=== PATIENT | female | born 1970 | race Caucasian/White ===

== ENCOUNTER → 2020-08-04 | Day surgery (SDC) | payer OTHER ==
[2020-08-01 16:16] LABS: BASOPHILS # (AUTO) 0.1 (0.0-0.1); BASOPHILS % 0.9 % (0.0-1.0); EOSINOPHILS # (AUTO) 0.8 (0.0-0.4); EOSINOPHILS % 8.2 % (0.0-6.0); HEMATOCRIT 36.6 % (34.2-44.1); HEMOGLOBIN 11.1 g/dL (12.0-16.0); LYMPHOCYTES # (AUTO) 4.2 (1.0-3.2); LYMPHOCYTES % 45.5 % (18.0-39.1); MEAN CORPUSCULAR HEMOGLOBIN 26.5 pg (28-32); MEAN CORPUSCULAR HGB CONC 30.3 g/dL (31-35); MEAN CORPUSCULAR VOLUME 87.4 fL (81-99); MONOCYTES # (AUTO) 0.7 (0.2-0.8); MONOCYTES % 7.1 % (4.4-11.3); NEUTROPHILS # (AUTO) 3.6 (2.1-6.9); NEUTROPHILS % 38.1 % (38.7-80.0); PLATELET COUNT 291 x10e3/uL (140-360); RED BLOOD COUNT 4.19 x10e6/uL (3.6-5.1); RED CELL DISTRIBUTION WIDTH 16.5 % (11.7-14.4)
[2020-08-01 16:31] LABS: ANION GAP 12.6 mmol/L (8-16); BLOOD UREA NITROGEN 13 mg/dL (7-26); BUN/CREATININE RATIO 16 (6-25); CARBON DIOXIDE 25 mmol/L (22-29); CHLORIDE 103 mmol/L (98-107); EST GLOMERULAR FILTRATION RATE > 60 ML/MIN (60-); GLUCOSE 173 mg/dL (74-118); POTASSIUM 4.6 mmol/L (3.5-5.1); SODIUM 136 mmol/L (136-145)
[~2020-08-04] MED LIST: ASPIRIN EC81 MG PO; CRESTOR10 MG PO; DEXAMETHASONE SOD PHOS INJ 4 MG/ML VIAL ONE; FENTANYL CITRATE/PF 100MCG/2 ML INJ ONE; GLYCOPYRROLATE INJ 0.2 MG/ML VIAL ONE; LIDOCAINE HCL 2% LOCAL INJ 5 ML SDV VIAL INJ ONE; METFORMIN HCL500 MG PO; METOPROLOL SUCC50 MG PO; MIDAZOLAM HCL 2 MG/2 ML VIAL ONE; MULTI-VITAMIN1 EACH PO; ONDANSETRON HCL INJ 2MG/ML 2ML 2 MG/ML VIAL ONE; PROPOFOL IV EMULSION 10 MG/ML 20 ML VIAL ONE; SEVOFLURANE INHAL SOLN 250 ML PEN BTL ONE; ZYRTEC10 M3 PO
[2020-08-04 14:15] VITALS: BP 162/86
--- NOTE | 2020-08-17 19:05 | Operative Report ---
DATE OF PROCEDURE: 08/04/2020 SURGEON: Cynthia Bazzi MD [employer] RIGGER: None. PREOPERATIVE DIAGNOSIS: Endometrial polyp. POSTOPERATIVE DIAGNOSIS: Uterine fibroid. PROCEDURES PERFORMED: Diagnostic hysteroscopy, dilatation and curettage and intrauterine myomectomy. FINDINGS DURING THE PROCEDURE: Cervix was closed along the posterior, uterus was anteverted approximately 6-week size. Upon hysteroscopic examination a mucosal fibroid was visualized in the uterine cavity approximately 2 cm. SPECIMENS: Removed were uterine fibroid and uterine curetting. ESTIMATED BLOOD LOSS: Less than 5 mL. DESCRIPTION OF PROCEDURE: The patient was taken to the operating room, general anesthesia was administered without difficulty. The patient was prepped and draped in dorsal lithotomy position. A time-out was performed. Attention was turned to the vagina cervix was grasped using a single tooth tenaculum. The cervix was hysteroscope, which was inserted to the uterine cavity. The uterus was distended using normal saline fluid. The above-mentioned findings were noted. A large whitish scar tissue device was then inserted into the uterus and myomectomy was performed without difficulty. Hysteroscope was removed and gentle sharp curettage was performed. Endometrial curettings were sent along with the myomectomy specimen. The patient tolerated the procedure well. All instruments removed from the vagina. Good hemostasis was noted. The patient was awoken from general anesthesia and transferred to the recovery room in stable condition. MD MICHELLE Davis/MODL /[id number]
== END | disposition home or self-care (01) ==
LOC: OR 10:31 → EDBD 12:30
PROVIDERS: ATTEND Obstetrics & Gynecology
DX: D25.9 Leiomyoma of uterus, unspecified (principal); I10 Essential (primary) hypertension; E11.9 Type 2 diabetes mellitus without complications; I49.8 Other specified cardiac arrhythmias; H91.90 Unspecified hearing loss, unspecified ear; F41.9 Anxiety disorder, unspecified; Z01.810 Encounter for preprocedural cardiovascular examination; Z01.812 Encounter for preprocedural laboratory examination; Z11.59 Encounter for screening for other viral diseases; Z79.82 Long term (current) use of aspirin; Z79.84 Long term (current) use of oral hypoglycemic drugs
CPT/HCPCS: 36415 ×2; 58561; 80048; 82948; 84702; 85025; 88305; 93005; J1100; J2001; J2250; J2405; J2704; J3010; U0002